=== PATIENT | male | born 1980 | race Caucasian/White ===

== ENCOUNTER 2017-10-11 10:35 | Day surgery (SDC) | payer OTHER ==
[~2017-10-11] VITALS: Ht 177.8 cm; Wt 94.0 kg
[2017-10-11 11:02] VITALS: BP 124/87; PULSE 66; TEMP 98.1
[2017-10-11] MEDS ORDERED: LEXAPRO20 MG PO (11:10)
[2017-10-11] MEDS ORDERED: SUBOXONE 2 MG-01 TAB PO (11:11)
[2017-10-11 12:20] VITALS: BP 119/75; PULSE 63; TEMP 97.9
[2017-10-11 12:35] VITALS: BP 124/84; PULSE 57
[2017-10-11 12:50] VITALS: BP 133/87; PULSE 61
[2017-10-11 13:07] VITALS: BP 114/91; PULSE 68
== END 2017-10-11 13:06 | disposition home or self-care (01) ==
LOC: SDCO 10:35
DX: R19.7 Diarrhea, unspecified (principal); R14.0 Abdominal distension (gaseous); Z87.891 Personal history of nicotine dependence; Z80.0 Family history of malignant neoplasm of digestive organs; Z83.79 Family history of other diseases of the digestive system
CPT/HCPCS: J2704

== ENCOUNTER → 2017-11-27 | Outpatient (CLI) | payer OTHER ==
[~2017-11-27] MED LIST: LEXAPRO20 MG PO; SUBOXONE 2 MG-01 TAB PO
== END ==
LOC: MHCPAIN 08:08
DX: G89.29 Other chronic pain (principal); M47.812 Spondylosis without myelopathy or radiculopathy, cervical region; M54.12 Radiculopathy, cervical region
CPT/HCPCS: G0463

== ENCOUNTER → 2017-12-17 | Outpatient (CLI) | payer OTHER | LOC: MHCPAIN 08:36 | DX: G89.29 Other chronic pain (principal); M50.90 Cervical disc disorder, unspecified, unspecified cervical region; M54.12 Radiculopathy, cervical region | CPT/HCPCS: G0463 ==

== ENCOUNTER → 2017-12-26 | Outpatient (CLI) | payer OTHER | LOC: MHCPAIN 08:19 | DX: M54.12 Radiculopathy, cervical region (principal); M50.90 Cervical disc disorder, unspecified, unspecified cervical region | CPT/HCPCS: J1100; J2250; J3010; Q9967 ==

== ENCOUNTER → 2018-01-15 | Outpatient (CLI) | payer OTHER | LOC: COL.VAS 08:45 | DX: R07.9 Chest pain, unspecified (principal) ==

== ENCOUNTER → 2018-01-16 | Outpatient (CLI) | payer OTHER | LOC: MHCPAIN 11:54 | DX: M54.12 Radiculopathy, cervical region (principal); M50.90 Cervical disc disorder, unspecified, unspecified cervical region | CPT/HCPCS: J1100; J2250; J3010; Q9967 ==

== ENCOUNTER → 2018-02-05 | Outpatient (CLI) | payer OTHER | LOC: MHCPAIN 15:30 | DX: G89.29 Other chronic pain (principal); M50.90 Cervical disc disorder, unspecified, unspecified cervical region; M54.12 Radiculopathy, cervical region | CPT/HCPCS: G0463 ==